=== PATIENT | female | born 1970 | race Caucasian/White ===

== ENCOUNTER 2019-03-17 05:58 | Emergency (ER) | payer BC ==
--- NOTE | 2019-03-17 06:00 | PDOC ---
History of Present Illness - General Chief Complaint: Pain, Acute Stated Complaint: L FLANK PAIN Time Seen by Provider: 03/17/19 05:59 - History of Present Illness Initial Comments: 03/17/19 06:12 The patient is a 48 year old female, with a significant PMH of left sided renal colic 4 and a half years ago, presents to the emergency department with 1 day hx of progressive left flank pain(similar to previous renal colic). The patient states pain was tolerable during the day yesterday and she was able to go to sleep in the evening after taking a Tylenol with Codeine tablet that she had. She awakened at 2:30A with severe L flank pain , accompanied by nausea and one episode of vomiting. No relief after 800mg of Ibuprofen and pt proceeded here.NO fever/chills/ dysuria/ gross hematuria CT in 2013 showed mild to moderate L hydronephrosis/hydroureter with 2-3mm stone in left paramedian bladder, suggestive of recent passage No other significant PMH The patient denies chest pain, shortness of breath, headache and dizziness. Denies fever, chills, nausea, vomit, diarrhea and constipation. On no regular medications No smoking/alcohol or other drugs Past History - Past Medical History Allergies/Adverse Reactions: Allergies Allergy/AdvReac Type Severity Reaction Status Date / Time No Known Allergies Allergy Verified 08/26/14 10:15 Home Medications: Ambulatory Orders Ibuprofen 400 mg PO QID #30 tablet 03/17/19 Oxycodone HCl/Acetaminophen [Percocet 5-325 mg Tablet -] 1 combo PO Q6H PRN #14 tablet MDD 4 03/17/19 Tamsulosin HCl [Flomax] 0.4 mg PO DAILY #7 capsule 03/17/19 - Reproductive History Para: 2 - Suicide/Smoking/Psychosocial Hx Smoking History: Never smoked Hx Alcohol Use: No Substance Use Type: None Review of Systems - Review of Systems Able to Perform ROS?: Yes Comments:: GENERAL/CONSTITUTIONAL: No fever or chills. No weakness. HEAD, EYES, EARS, NOSE AND THROAT: No change in vision. No ear pain or discharge. No sore throat. CARDIOVASCULAR: No chest pain or shortness of breath. RESPIRATORY: No cough, wheezing, or hemoptysis. GASTROINTESTINAL: No nausea, vomiting, diarrhea or constipation. MUSCULOSKELETAL: No joint or muscle swelling or pain. No neck or back pain. SKIN: No rash NEUROLOGIC: No headache, vertigo, loss of consciousness, or change in strength/ sensation. ENDOCRINE: No increased thirst. No abnormal weight change. HEMATOLOGIC/LYMPHATIC: No anemia, easy bleeding, or history of blood clots. ALLERGIC/IMMUNOLOGIC: No hives or skin allergy. *Physical Exam - Physical Exam Comments: GENERAL: Awake, alert, and fully oriented, in moderate distress secondary to left flank pain HEAD: No signs of trauma EYES: PERRLA, EOMI, sclera anicteric, conjunctiva clear ENT: Auricles normal inspection, hearing grossly normal, nares patent, oropharynx clear without exudates. Dry mucosa NECK: Normal ROM, supple, no lymphadenopathy, JVD, or masses LUNGS: Breath sounds equal, clear to auscultation bilaterally. No wheezes, and no crackles HEART: Regular rate and rhythm, normal S1 and S2, no murmurs, rubs or gallops ABDOMEN: Soft, normoactive bowel sounds. No guarding, no rebound. No masses Mild Left flank/CVA tenderness EXTREMITIES: Normal range of motion, no edema. No clubbing or cyanosis. No cords, erythema, or tenderness NEUROLOGICAL: Cranial nerves II through XII grossly intact. Normal speech, normal gait SKIN: Warm, Dry, normal turgor, no rashes or lesions noted. ED Treatment Course - LABORATORY CBC & Chemistry Diagram: 03/17/19 06:17 03/17/19 06:17 Medical Decision Making - Medical Decision Making 03/17/19 06:20 This 48 y.o old with hx of renal colic 4 years ago presents with one day hx of left flank pain similar to previous colic episode. Was awakened by more severe flank pain with nausea/ vomiting about 3 hours prior to presentation. Exam as noted IV started with 1 liter NS and 30mg Toradol . CBC/Chemistry/UA/PGU to be sent. 03/17/19 06:46 1 mg Dilaudid IV given after patient had limited relief of pain. Pt reports significant pain relief after Dilaudid. Plan renal stone protocol CT *DC/Admit/Observation/Transfer Diagnosis at time of Disposition: Kidney stone on left side, Pericardial effusion - Discharge Dispostion Disposition: HOME Condition at time of disposition: Stable - Prescriptions Prescriptions: Ibuprofen 400 mg PO QID #30 tablet Oxycodone HCl/Acetaminophen [Percocet 5-325 mg Tablet -] 1 combo PO Q6H PRN #14 tablet MDD 4 PRN Reason: Pain Tamsulosin HCl [Flomax] 0.4 mg PO DAILY #7 capsule - Referrals Referrals: Kvng Sotelo MD [Staff Physician] - Tim Herzog MD [Staff Physician] - Samm Hoffman MD [Staff Physician] - - Patient Instructions Printed Discharge Instructions: DI for Kidney Stones, DI for Prescription Opioid Use Additional Instructions: Return to the emergency department immediately with ANY new, persistent or worsening symptoms including worsening pain, inability to tolerate oral intake, fever/chills, or any other concerns. Take the ibuprofen every 6 hours for the next 2 days. Take percocet if you have pain that is not treated with the motrin/ibuprofen. Beware that it may make you sleepy, so do not drive or do anything that would put you or others in danger. Take flomax daily. Stay well hydrated. There was also an incidental finding of a trace pericardial effusion on your CAT scan - please follow-up with your primary care doctor and or a biomedical specialist to have this monitored. If he has any shortness of breath, chest pain or other concerns return to the emergency department immediately. A copy of the CAT scan with the results was included for your review - please share this with your doctor. You MUST call and follow up with your doctor and urology within 3 days for further evaluation of your symptoms. Your emergency department visit is not complete without a followup with your doctor for reevaluation. Results were discussed with you. Please make sure your doctor reviews the results of your emergency evaluation. Print Language: CITIZEN OF [place] - Post Discharge Activity Forms/Work/School Notes: Back to Work
[2019-03-17] MEDS ORDERED: KETOROLAC TROMETHAMINE 60 MG/2 ML VIAL IM ONE (06:01)
[2019-03-17] MEDS ORDERED: SODIUM CHLORIDE 1,000 ML IV STA (06:01)
[2019-03-17 06:04] VITALS: TEMP 97.5; BMI 29.7
[2019-03-17] MEDS ORDERED: KETOROLAC TROMETHAMINE 30 MG/1 ML VIAL IVPUSH ONE (06:05)
[2019-03-17] MEDS ORDERED: KETOROLAC TROMETHAMINE 30 MG/1 ML VIAL ONE (06:05)
[2019-03-17] MEDS ORDERED: HYDROmorphone HCL CARPU-JECT 1 MG/1 ML DISP.SYRIN IVPUSH ONE (06:20)
[2019-03-17] MEDS ORDERED: HYDROmorphone HCL CARPU-JECT 1 MG/1 ML DISP.SYRIN ONE (06:24)
[2019-03-17 07:02] LABS: HCG,QUALITATIVE URINE Negative
[2019-03-17 07:16] LABS: BASO % 0.1 % (0-2.0); HEMATOCRIT 42.7 % (32.4-45.2); HEMOGLOBIN 14.1 GM/dl (10.7-15.3); LYMPH % 19.4 % (8-40); MCH 30.9 pg (25.7-33.7); MEAN CELL VOLUME 93.4 fl (80-96); MEAN PLT VOLUME 9.1 fl (7.5-11.1); NEUT % 73.5 % (42.8-82.8); PLATELET COUNT 335 K/MM3 (134-434); RBC 4.57 M/mm3 (3.60-5.2); RDW 12.2 % (11.6-15.6); WHITE BLOOD COUNT 11.9 K/mm3 (4.0-10.8)
[2019-03-17 07:23] LABS: ALBUMIN 4.2 g/dl (3.4-5.0); ALK PHOS 79 U/L (45-117); ANION GAP 13 MMOL/L (8-16); BLOOD UREA NITROGEN 19 mg/dl (7-18); CALCIUM 10.2 mg/dl (8.5-10); CHLORIDE 99 mmol/L (98-107); CO2 26 mmol/L (21-32); CREATININE 0.7 mg/dl (0.55-1.3); GLUCOSE,RANDOM 101 mg/dl (74-106); SGOT/AST 20 U/L (15-37); SGPT/ALT 20 U/L (13-61); SODIUM 138 mmol/L (136-145); TOT PROT 7.3 g/dl (6.4-8.2)
[2019-03-17 08:26] LABS: EPITHELIAL CELLS 2+ /hpf
--- NOTE | 2019-03-17 09:12 | PDOC ---
*Physical Exam - Vital Signs Last Vital Signs Temp Pulse Resp BP Pulse Ox 97.5 F L 56 L 15 159/76 100 03/17/19 06:00 03/17/19 06:00 03/17/19 06:00 03/17/19 06:00 03/17/19 06:00 ED Treatment Course - LABORATORY CBC & Chemistry Diagram: 03/17/19 06:17 03/17/19 06:17 - ADDITIONAL ORDERS Additional order review: Laboratory Results 03/17/19 03/17/19 06:17 06:17 Sodium 138 Potassium 4.0 Chloride 99 Carbon Dioxide 26 Anion Gap 13 BUN 19 H Creatinine 0.7 Creat Clearance w eGFR 89.31 Random Glucose 101 Calcium 10.2 H Total Bilirubin 1.0 AST 20 ALT 20 Alkaline Phosphatase 79 Total Protein 7.3 Albumin 4.2 Urine Color Yellow Urine Appearance Clear Urine pH 7.5 Urine Protein Negative Urine Glucose (UA) Negative Urine Ketones Negative Urine Blood Trace-intact Urine Nitrite Negative Urine Bilirubin Negative Urine Urobilinogen 0.2 Ur Leukocyte Esterase Negative Urine RBC 0-3 Urine WBC 0-3 Ur Transition Epith Cell 2+ Urine Bacteria Few Urine HCG, Qual Negative 03/17/19 06:17 RBC 4.57 MCV 93.4 MCHC 33.0 RDW 12.2 MPV 9.1 Neutrophils % 73.5 Lymphocytes % 19.4 Monocytes % 6.0 Eosinophils % 1.0 Basophils % 0.1 - Medications Given in the ED: ED Medications Discontinued Medications Generic Name Dose Route Start Last Admin Trade Name Freq PRN Reason Stop Dose Admin Hydromorphone HCl 1 mg 03/17/19 06:20 03/17/19 06:23 Dilaudid Injection - IVPUSH 03/17/19 06:21 1 mg ONCE ONE Administration Sodium Chloride 1,000 mls @ 1,000 mls/hr 03/17/19 06:01 03/17/19 06:16 Normal Saline - IV 03/17/19 07:00 1,000 mls/hr ASDIR STA Administration Ketorolac Tromethamine 60 mg 03/17/19 06:01 03/17/19 06:16 Toradol Injection - IM 03/17/19 06:02 60 mg ONCE ONE Administration Ketorolac Tromethamine 30 mg 03/17/19 06:05 03/17/19 06:17 Toradol Injection - IVPUSH 03/17/19 06:06 30 mg ONCE ONE Administration Medical Decision Making - Medical Decision Making 03/17/19 09:07 Pt feeling better on reassessment. Currently pain free, non since rceiving medications. Pts labs reviewed no signs of UTI on ua CT results reviewed - noted for moderate L hydro with obstructing stone in UVJ measuring 4.7 x 3.7mm. . there is also trace pericardial effusion and minimal b /l pleural efusion noted - unclear of significance - pt has no symptoms of sob/ cp/whitt. will have pt fu with urology and cardiology for further follow up and potential workup. return precautinos were dsicussed (for both stone & sob/whitt/complicatinos sof pericardial effusion) I discussed the physical exam findings, ancillary test results and final diagnoses with the patient. I answered all of the patient's questions. The patient was satisfied with the care received and felt comfortable with the discharge plan and treatment plan. The patient will call their primary care physician within 24 hours to arrange follow-up and will return to the Emergency Department with any new, persistent or worsening symptoms. *DC/Admit/Observation/Transfer Diagnosis at time of Disposition: Kidney stone on left side, Pericardial effusion - Discharge Dispostion Disposition: HOME Condition at time of disposition: Stable Decision to Admit order: No - Prescriptions Prescriptions: Ibuprofen 400 mg PO QID #30 tablet Oxycodone HCl/Acetaminophen [Percocet 5-325 mg Tablet -] 1 combo PO Q6H PRN #14 tablet MDD 4 PRN Reason: Pain Tamsulosin HCl [Flomax] 0.4 mg PO DAILY #7 capsule - Referrals Referrals: Samm Hoffman MD [Staff Physician] - Tim Herzog MD [Staff Physician] - Kvng Sotelo MD [Staff Physician] - - Patient Instructions Printed Discharge Instructions: DI for Kidney Stones, DI for Prescription Opioid Use Additional Instructions: Return to the emergency department immediately with ANY new, persistent or worsening symptoms including worsening pain, inability to tolerate oral intake, fever/chills, or any other concerns. Take the ibuprofen every 6 hours for the next 2 days. Take percocet if you have pain that is not treated with the motrin/ibuprofen. Beware that it may make you sleepy, so do not drive or do anything that would put you or others in danger. Take flomax daily. Stay well hydrated. There was also an incidental finding of a trace pericardial effusion on your CAT scan - please follow-up with your primary care doctor and or a clinic md associate to have this monitored. If he has any shortness of breath, chest pain or other concerns return to the emergency department immediately. A copy of the CAT scan with the results was included for your review - please share this with your doctor. You MUST call and follow up with your doctor and urology within 3 days for further evaluation of your symptoms. Your emergency department visit is not complete without a followup with your doctor for reevaluation. Results were discussed with you. Please make sure your doctor reviews the results of your emergency evaluation. Print Language: [place] - Post Discharge Activity Forms/Work/School Notes: Back to Work
[2019-03-17 09:14] VITALS: BP 135/75; PULSE 64
[2019-03-17] MEDS ORDERED: morphine CARPU-JECT 2 MG/1 ML DISP.SYRIN IVPUSH ONE (09:35)
[2019-03-17] MEDS ORDERED: morphine SULFATE 4 MG/ML VIAL ONE (09:37)
== END 2019-03-17 10:08 | disposition home or self-care (01) ==
LOC: FER 05:58
PROC: 3E0233Z Introduction of Anti-inflammatory into Muscle, Percutaneous Approach (ICD-10-PCS; principal; 2019-03-17)
PROC: 3E033NZ Introduction of Analgesics, Hypnotics, Sedatives into Peripheral Vein, Percutaneous Approach (ICD-10-PCS; 2019-03-17)
PROC: 3E0337Z Introduction of Electrolytic and Water Balance Substance into Peripheral Vein, Percutaneous Approach (ICD-10-PCS; 2019-03-17)
DX: N20.0 Calculus of kidney (principal); I31.3 Pericardial effusion (noninflammatory)
CPT/HCPCS: 36415; 74176-TC; 80053; 81003; 81015; 84703; 85025; 99283-25; J7030

== ENCOUNTER 2019-09-27 22:05 | Emergency (ER) | payer BC ==
[2019-09-27] MEDS ORDERED: SODIUM CHLORIDE 1,000 ML IV ONE (22:12)
[2019-09-27] MEDS ORDERED: KETOROLAC TROMETHAMINE 30 MG/1 ML VIAL IVPUSH ONE (22:12)
--- NOTE | 2019-09-27 22:14 | PDOC ---
History of Present Illness - General Chief Complaint: Pain, Acute Stated Complaint: LEFT FLANK PAIN Time Seen by Provider: 09/27/19 22:08 History Source: Patient Exam Limitations: No Limitations - History of Present Illness Initial Comments: 09/27/19 22:23 This is a 48-year-old female who has history of renal colic multiple times in the past. Patient said she has had left-sided flank pain all day radiating towards her left lower quadrant. Patient also was complaining of some pain when she tries to urinate. Patient otherwise denies any fever, chills, nausea, vomiting or diarrhea. Allergies: as per nursing notes Past Medical History: none Social history: Lives with family. No smoking. No alcohol. No illicit drugs. Surgical history: None General: No fevers or chills, no weakness, no weight loss HEENT: No change in vision. No sore throat,. No ear pain CardioVascular: no chest discomfort. No shortness of breath Respiratory:No cough, or wheezing. Gastrointestinal: no nausea, vomiting, diarrhea or constipation, No rectal bleeding Genitourinary: + dysuria, no hematuria, or frequency, left flank pain Musculoskeletal: No joint or muscle pain or swelling Neurologic: No headache, vertigo, dizziness or loss of consciousness Psychiatric: nor depression Skin: No rashes or easy bruising Endocrine: no increased thirst or abnormal weight change Allergic: no skin or latex allergy All other systems reviewed and normal GENERAL: The patient is awake, alert, and fully oriented, in no acute distress. HEAD: Normal with no signs of trauma. EYES: Pupils equal, round and reactive to light, extraocular movements intact, sclera anicteric, conjunctiva clear. Left flank: There is tenderness on palpation left lower flank, there is no CVA tenderness EXTREMITIES:atraumatic, Normal range of motion, no edema. NEUROLOGICAL: Normal speech, normal gait. PSYCH: Normal mood, normal affect. SKIN: Warm, Dry, normal turgor, no rashes or lesions noted. Assessment and plan: Work-up initiated including CBC, comp, spiral CT, UA Patient given IV fluids and Toradol for pain. 09/28/19 01:24 Reevaluation: Patient feels much better. CAT scan is back shows a 5 mm stone in the bladder patient has passed the stone. Patient discharged with follow-up with her urologist Past History - Past Medical History Allergies/Adverse Reactions: Allergies Allergy/AdvReac Type Severity Reaction Status Date / Time No Known Allergies Allergy Verified 09/27/19 22:11 Home Medications: Ambulatory Orders NK [No Known Home Medication] 09/27/19 COPD: No - Reproductive History Para: 2 - Psycho Social/Smoking Cessation Hx Smoking History: Never smoked Have you smoked in the past 12 months: No Number of Cigarettes Smoked Daily: 0 Hx Alcohol Use: No Drug/Substance Use Hx: No Substance Use Type: None ED Treatment Course - LABORATORY CBC & Chemistry Diagram: 09/27/19 22:20 09/27/19 22:20 Discharge - Discharge Information Problems reviewed: Yes Clinical Impression/Diagnosis: Renal colic on left side Condition: Stable Disposition: HOME - Admission No - Follow up/Referral - Patient Discharge Instructions Additional Instructions: Return to the emergency department immediately with ANY new, persistent or worsening symptoms. Continue any medications as previously prescribed by your physician. You should follow up with your primary doctor as soon as possible regarding today's emergency department visit. . Please make sure your doctor reviews the results of your emergency evaluation. Thank you for coming to the Emergency Department today for your care. It was a pleasure to see you today. Please note that your evaluation is INCOMPLETE until you follow-up with your doctor. - Post Discharge Activity Work/Back to School Note: Back to Work
[2019-09-27 22:20] VITALS: BP 155/96; PULSE 65; TEMP 98.1; BMI 31.3
[2019-09-27 22:33] LABS: BASO % 0.3 % (0-2.0); EOS % 0.6 % (0-4.5); HEMATOCRIT 43.6 % (32.4-45.2); HEMOGLOBIN 14.3 GM/dl (10.7-15.3); LYMPH % 19.5 % (8-40); MCH 30.2 pg (25.7-33.7); MCHC 32.7 g/dl (32.0-36.0); MEAN CELL VOLUME 92.2 fl (80-96); MEAN PLT VOLUME 8.6 fl (7.5-11.1); MONO % 6.9 % (3.8-10.2); NEUT % 72.7 % (42.8-82.8); PLATELET COUNT 335 K/MM3 (134-434); RBC 4.72 M/mm3 (3.60-5.2); RDW 12.2 % (11.6-15.6); WHITE BLOOD COUNT 14.5 K/mm3 (4.0-10.8)
[2019-09-27 22:43] LABS: ALBUMIN 4.2 g/dl (3.4-5.0); BILIRUBIN,TOTAL 0.7 mg/dl (0.2-1); CALCIUM 9.7 mg/dl (8.5-10); CREATININE 0.8 mg/dl (0.55-1.3); POTASSIUM 3.7 mmol/L (3.5-5.1); TOT PROT 7.7 g/dl (6.4-8.2)
[2019-09-27 22:45] LABS: AMORP PHOS 3+ /hpf (NONE SEEN); CALCIUM OXALATE CRYSTALS MODERATE /hpf (NONE SEEN)
== END 2019-09-28 01:29 | disposition home or self-care (01) ==
LOC: FER 22:05
PROC: 3E0333Z Introduction of Anti-inflammatory into Peripheral Vein, Percutaneous Approach (ICD-10-PCS; principal; 2019-09-27)
DX: N20.0 Calculus of kidney (principal)
CPT/HCPCS: 36415; 74176-TC; 80053; 81003; 81015; 84703; 85025; 99282-25; J7030

== ENCOUNTER 2023-01-31 22:46 | Emergency (ER) | payer BC, OTHER ==
[2023-01-31] MEDS ORDERED: KETOROLAC TROMETHAMINE 30 MG/1 ML VIAL IVPUSH ONE (22:55)
[2023-01-31] MEDS ORDERED: SODIUM CHLORIDE 0.9% 500 ML INFUS.BAG IV ONE (22:55)
[2023-01-31] MEDS ORDERED: KETOROLAC TROMETHAMINE 30 MG/1 ML VIAL ONE (22:58)
[2023-01-31 23:06] VITALS: BP 172/84; PULSE 72; RESP 18; TEMP 98.2; BMI 31.4
[2023-01-31 23:20] LABS: HEMATOCRIT 46.6 % (32.4-45.2); HEMOGLOBIN 15.6 G/dL (10.7-15.3); MCH 30.7 pg (25.7-33.7); MCHC 33.5 g/dl (32.0-36.0); MEAN CELL VOLUME 91.8 fl (80-96); MEAN PLT VOLUME 7.9 fl (7.5-11.1); PLATELET COUNT 355.2 10^3/uL (134-434); RBC 5.08 10^6/uL (3.60-5.2); RDW 13.5 % (11.6-15.6); WHITE BLOOD COUNT 11.2 10^3/uL (4.0-10.8)
[2023-01-31 23:29] LABS: ALBUMIN 4.3 g/dl (3.4-5.0); BILIRUBIN,TOTAL 0.3 mg/dl (0.2-1); CREATININE 0.7 mg/dl (0.55-1.3); TOT PROT 7.9 g/dl (6.4-8.2)
[2023-01-31] MEDS ORDERED: MAGNESIUM SULF 50% (8.12 MEQ/2 ML-1 GM VIAL) IVPB ONE (23:41)
[2023-01-31] MEDS ORDERED: POTASSIUM CHLORIDE TABS 20 MEQ TABLET.ER (FP) PO ONE ×2 (23:41→23:46)
[2023-01-31] MEDS ORDERED: MAGNESIUM SULFATE IN WATER 2 GM/50 ML IVPB IVPB ONE (23:46)
[2023-01-31 23:49] LABS: CALCIUM OXALATE CRYSTALS FEW /hpf (NONE SEEN); EPITHELIAL CELLS FEW /hpf; URINE AMORPHOUS SEDIMENT 2+
[2023-01-31] MEDS ORDERED: morphine CARPU-JECT 2 MG/1 ML DISP.SYRIN IVPUSH ONE (23:50)
[2023-01-31] MEDS ORDERED: morphine SULFATE 4 MG/ML VIAL ONE (23:52)
== END 2023-02-01 00:19 | disposition home or self-care (01) ==
LOC: FER 22:46
PROC: 3E0333Z Introduction of Anti-inflammatory into Peripheral Vein, Percutaneous Approach (ICD-10-PCS; principal; 2023-01-31)
PROC: 3E033GC Introduction of Other Therapeutic Substance into Peripheral Vein, Percutaneous Approach (ICD-10-PCS; 2023-01-31)
PROC: 3E033GC Introduction of Other Therapeutic Substance into Peripheral Vein, Percutaneous Approach (ICD-10-PCS; 2023-01-31)
DX: N20.0 Calculus of kidney (principal); N20.1 Calculus of ureter
CPT/HCPCS: 36415; 74176-TC; 80053; 81003; 81015; 85025; 99284-25

== ENCOUNTER 2023-04-19 09:06 | Day surgery (SDC) | payer OTHER ==
[2023-04-19] MEDS ORDERED: ACETAMINOPHEN 1000 MG/100 ML BAG IVPB ONE (09:23)
[2023-04-19] MEDS ORDERED: KETOROLAC TROMETHAMINE 30 MG/1 ML VIAL IVPUSH ONE (09:23)
[2023-04-19] MEDS ORDERED: SODIUM CHLORIDE 0.9% 500 ML INFUS.BAG IV ONE (09:25)
[2023-04-19] MEDS ORDERED: ACETAMINOPHEN INJECTION 100 ML IVPB ONE (09:32)
[2023-04-19] MEDS ORDERED: KETOROLAC TROMETHAMINE 30 MG/1 ML VIAL ONE (09:32)
[2023-04-19 09:38] LABS: HEMATOCRIT 47.1 % (32.4-45.2); HEMOGLOBIN 15.4 G/dL (10.7-15.3); MCH 30.5 pg (25.7-33.7); MCHC 32.7 g/dl (32.0-36.0); MEAN CELL VOLUME 93.3 fl (80-96); MEAN PLT VOLUME 8.7 fl (7.5-11.1); PLATELET COUNT 315.8 10^3/uL (134-434); RBC 5.05 10^6/uL (3.60-5.2); WHITE BLOOD COUNT 7.3 10^3/uL (4.0-10.8)
[2023-04-19 10:13] LABS: PLATELET ESTIMATE ADEQUATE
[2023-04-19] MEDS ORDERED: HYDROmorphone HCl 2 MG/ML VIAL IVPUSH ONE (10:25)
[2023-04-19 10:32] LABS: EPITHELIAL CELLS FEW /hpf
[2023-04-19 10:48] LABS: POTASSIUM 3.7 mmol/L (3.5-5.1)
[2023-04-19 10:50] LABS: CALCIUM 9.7 mg/dL (8.5-10.1)
[2023-04-19] MEDS ORDERED: HYDROmorphone HCL/PF 1 MG/ML VIAL ONE (10:50)
[2023-04-19 10:51] LABS: ALBUMIN 3.8 g/dl (3.4-5.0); BLOOD UREA NITROGEN 13.1 mg/dL (7-18)
[2023-04-19 10:54] LABS: CREATININE 0.6 mg/dL (0.55-1.3)
[2023-04-19 10:56] LABS: BILIRUBIN,TOTAL 0.6 mg/dL (0.2-1); TOT PROT 7.6 g/dl (6.4-8.2)
[2023-04-19] MEDS ORDERED: TAMSULOSIN HCL 0.4 MG CAP PO ONE (11:55)
[2023-04-19] MEDS ORDERED: TAMSULOSIN HCL 0.4 MG CAP ONE (12:28)
[2023-04-19] MEDS ORDERED: ACETAMINOPHEN 1000 MG/100 ML BAG IVPB PRN (15:42)
[2023-04-19] MEDS ORDERED: SODIUM CHLORIDE 1,000 ML IV SCH (15:45)
[2023-04-19] MEDS ORDERED: morphine SULFATE 4 MG/ML VIAL ONE (17:31)
[2023-04-19] MEDS ORDERED: ONDANSETRON 4 MG/2 ML VIAL IVPUSH ONE (17:36)
[2023-04-19] MEDS ORDERED: ONDANSETRON 4 MG/2 ML VIAL ONE (17:37)
[2023-04-19 20:10] VITALS: BMI 35.1
[2023-04-19] MEDS ORDERED: ACETAMINOPHEN 325 MG TABLET (FP) PO PRN (20:15)
[2023-04-19] MEDS: CEFTRIAXONE 1 GM in DEXTROSE 5%-WATER - 50 ML IVPB SCH (20:46)
[2023-04-19 21:34] LABS: URIC ACID 3.8 mg/dL (2.6-7.2)
[2023-04-19] MEDS ORDERED: ALPRAZolam 0.25 MG TABLET PO SCH (22:00)
[2023-04-20] MEDS ORDERED: TAMSULOSIN HCL 0.4 MG CAP PO SCH (08:30)
[2023-04-20] MEDS ORDERED: NICOTINE 7 MG/24 HOURS TOPICAL PATCH TD SCH (10:00)
[2023-04-20] MEDS: CEFTRIAXONE 1 GM in DEXTROSE 5%-WATER - 50 ML IVPB SCH (10:44)
[2023-04-20 10:52] LABS: INR 1.17 (0.83-1.09); PROTHROMBIN TIME (PATIENT) 13.5 SEC (9.7-13.0)
[2023-04-20 10:57] LABS: HEMOGLOBIN 13.4 GM/dL (10.7-15.3); MCH 29.8 pg (25.7-33.7); MCHC 32.6 g/dl (32.0-36.0); MEAN CELL VOLUME 91.5 fl (80-96); MEAN PLT VOLUME 8.9 fl (7.5-11.1); PLATELET COUNT 324 10^3/uL (134-434); RBC 4.48 M/mm3 (3.60-5.2); RDW 13.5 % (11.6-15.6); WHITE BLOOD COUNT 10.5 K/mm3 (4.0-10.0)
[2023-04-20 11:10] LABS: POTASSIUM 3.5 mmol/L (3.5-5.1)
[2023-04-20 11:26] LABS: ALBUMIN 3.4 g/dl (3.4-5.0); CALCIUM 9.4 mg/dL (8.5-10.1)
[2023-04-20 11:29] LABS: MAGNESIUM 2.1 mg/dL (1.8-2.4); PHOSPHOROUS 2.6 mg/dL (2.5-4.9)
[2023-04-20 11:30] LABS: BILIRUBIN,TOTAL 1.1 mg/dL (0.2-1); TOT PROT 6.5 g/dl (6.4-8.2)
[2023-04-20 11:31] LABS: BLOOD UREA NITROGEN 10.6 mg/dL (7-18)
[2023-04-20 11:34] LABS: CREATININE 0.8 mg/dL (0.55-1.3)
[2023-04-20] MEDS ORDERED: MIDAZOLAM HCL 2 MG/2 ML SINGLE DOSE VIAL ONE (12:09)
[2023-04-20] MEDS ORDERED: PROPOFOL 20 ML ONE (12:09)
[2023-04-20] MEDS ORDERED: DEXAMETHASONE SOD PHOSPHATE 4 MG/1 ML VIAL ONE (12:41)
[2023-04-20] MEDS ORDERED: ONDANSETRON 4 MG/2 ML VIAL ONE (12:41)
[2023-04-20] MEDS ORDERED: KETOROLAC TROMETHAMINE 30 MG/1 ML VIAL ONE (13:08)
[2023-04-20] MEDS ORDERED: ONDANSETRON 4 MG/2 ML VIAL IVPUSH PRN ×2 (13:20→14:06)
[2023-04-20] MEDS ORDERED: LACTATED RINGERS SOLUTION 1,000 ML IV SCH ×2 (13:30→14:06)
[2023-04-20] MEDS ORDERED: ACETAMINOPHEN 325 MG TABLET (FP) PO PRN (14:06)
[2023-04-20 14:10] VITALS: BP 158/75; PULSE 75; RESP 12; TEMP 97.3
[2023-04-20] MEDS ORDERED: ALPRAZolam 0.25 MG TABLET PO SCH (22:00)
[2023-04-21] MEDS ORDERED: NICOTINE 7 MG/24 HOURS TOPICAL PATCH TD SCH (10:00)
== END 2023-04-20 17:55 | disposition home or self-care (01) ==
LOC: FER 09:06 → UNDOADMIN 18:55 → JERBED 18:55 → J5S 19:36 → JERBED 19:36 → JASUSAT 04-20 14:29 → J5S 04-20 14:29 → JASUSAT 04-20 17:55
PROVIDERS: ATTEND Student in an Organized Health Care Education/Training Program
PROC: 0TC18ZZ Extirpation of Matter from Left Kidney, Via Natural or Artificial Opening Endoscopic (ICD-10-PCS; principal; 2023-04-20 17:00)
PROC: 0T778DZ Dilation of Left Ureter with Intraluminal Device, Via Natural or Artificial Opening Endoscopic (ICD-10-PCS; 2023-04-20 17:00)
DX: N13.2 Hydronephrosis with renal and ureteral calculous obstruction (principal); N17.9 Acute kidney failure, unspecified
CPT/HCPCS: 0241U-QW; 36415; 74176-TC; 76000-TC-FY; 80053; 81003; 81015; 82360; 83735; 84100; 84550; 84703; 85027; 85610; 86850; 86900; 86901; 87086; 88300-TC; 94760; 99285-25; C1758; C2617

== ENCOUNTER 2023-06-08 05:16 | Day surgery (SDC) | payer OTHER ==
[2023-06-03 09:16] VITALS: BMI 32.8
[2023-06-08] MEDS ORDERED: MIDAZOLAM HCL 2 MG/2 ML SINGLE DOSE VIAL ONE (09:24)
[2023-06-08 10:26] VITALS: RESP 18
[2023-06-08 10:27] VITALS: BP 133/77; PULSE 60; TEMP 98.2
== END 2023-06-08 11:15 | disposition home or self-care (01) ==
LOC: JASU-SURG 05:16
PROVIDERS: ATTEND Urology
PROC: 0TF4XZZ Fragmentation in Left Kidney Pelvis, External Approach (ICD-10-PCS; principal; 2023-06-08 09:00)
DX: N20.0 Calculus of kidney (principal)

== ENCOUNTER 2023-09-13 02:48 | Emergency (ER) | payer OTHER ==
[2023-09-13 02:53] VITALS: RESP 18; BMI 32.9
[2023-09-13] MEDS ORDERED: SODIUM CHLORIDE 1,000 ML IV STA (03:00)
[2023-09-13] MEDS ORDERED: KETOROLAC TROMETHAMINE 30 MG/1 ML VIAL IVPUSH ONE (03:01)
[2023-09-13] MEDS ORDERED: KETOROLAC TROMETHAMINE 30 MG/1 ML VIAL ONE (03:02)
[2023-09-13 03:31] VITALS: BP 157/79; PULSE 63; TEMP 97.8
[2023-09-13 04:56] LABS: EPI CELLS 2 /uL (0-25.1); HYALINE CASTS 1 /uL (0-3.1); PH,URINE 6.5 (5.0-8.0); URINE APPEARANCE CLOUDY; URINE BACTERIA >9,000 /uL (0-1359); URINE BILIRUBIN NEGATIVE (NEGATIVE); URINE COLOR YELLOW; URINE GLUCOSE (UA) NEGATIVE (NEGATIVE); URINE KETONE NEGATIVE (NEGATIVE); URINE LEUK ESTERASE 2+ (NEGATIVE); URINE NITRITE NEGATIVE (NEGATIVE); URINE PROTEIN TRACE (NEGATIVE); URINE RBC 87 /uL (0-23.9); URINE WBC 260 /uL (0-25.8)
[2023-09-13 05:31] LABS: BASO % 0.7 % (0-2.0); EOS % 1.4 % (0-4.5); HEMATOCRIT 41.9 % (32.4-45.2); HEMOGLOBIN 13.7 GM/dL (10.7-15.3); MCH 29.9 pg (25.7-33.7); MCHC 32.6 g/dl (32.0-36.0); MEAN CELL VOLUME 91.8 fl (80-96); MONO % 7.5 % (3.8-10.2); NEUT % 56.4 % (42.8-82.8); PLATELET COUNT 315 10^3/uL (134-434); RBC 4.57 M/mm3 (3.60-5.2); RDW 13.6 % (11.6-15.6); WHITE BLOOD COUNT 9.1 K/mm3 (4.0-10.0)
[2023-09-13 06:36] LABS: POTASSIUM 3.2 mmol/L (3.5-5.1)
[2023-09-13 06:39] LABS: CALCIUM 9.6 mg/dL (8.5-10.1)
[2023-09-13 06:40] LABS: ALBUMIN 3.5 g/dl (3.4-5.0); BLOOD UREA NITROGEN 22.2 mg/dL (7-18)
[2023-09-13] MEDS ORDERED: CEPHALEXIN MONOHYDRATE 500 MG CAPSULE (UD) PO ONE (06:40)
[2023-09-13 06:43] LABS: CREATININE 0.6 mg/dL (0.55-1.3)
[2023-09-13] MEDS ORDERED: CEPHALEXIN MONOHYDRATE 500 MG CAPSULE (UD) ONE (06:43)
[2023-09-13 06:44] LABS: BILIRUBIN,TOTAL 0.4 mg/dL (0.2-1)
[2023-09-13] MEDS ORDERED: POTASSIUM CHLORIDE TABS 20 MEQ TABLET.ER (FP) PO ONE ×2 (06:48)
== END 2023-09-13 06:57 | disposition home or self-care (01) ==
LOC: FER 02:48
PROC: 3E033NZ Introduction of Analgesics, Hypnotics, Sedatives into Peripheral Vein, Percutaneous Approach (ICD-10-PCS; principal; 2023-09-13)
PROC: 3E0337Z Introduction of Electrolytic and Water Balance Substance into Peripheral Vein, Percutaneous Approach (ICD-10-PCS; 2023-09-13)
DX: N23 Unspecified renal colic (principal); N39.0 Urinary tract infection, site not specified
CPT/HCPCS: 36415; 74176-TC; 80053; 81003; 85025; 87086; 87186; 99284-25

== ENCOUNTER 2023-11-23 04:33 | Day surgery (SDC) | payer OTHER ==
[2023-11-17 14:30] VITALS: BMI 30.8
[2023-11-23 12:29] VITALS: RESP 18
[2023-11-23] MEDS ORDERED: MIDAZOLAM HCL 2 MG/2 ML SINGLE DOSE VIAL ONE (13:54)
[2023-11-23 15:17] VITALS: BP 157/80; PULSE 55; TEMP 97.8
== END 2023-11-23 15:25 | disposition home or self-care (01) ==
LOC: JASU-SURG 04:33
PROVIDERS: ATTEND Urology
PROC: 0TF3XZZ Fragmentation in Right Kidney Pelvis, External Approach (ICD-10-PCS; principal; 2023-11-23 14:00)
DX: N20.0 Calculus of kidney (principal)

== ENCOUNTER 2023-12-02 13:08 | Emergency (ER) | payer OTHER ==
[2023-12-02] MEDS ORDERED: KETOROLAC TROMETHAMINE 15 MG/ML VIAL IVPUSH ONE (13:13)
[2023-12-02] MEDS ORDERED: ONDANSETRON 4 MG/2 ML VIAL IVPUSH ONE (13:16)
[2023-12-02 13:21] VITALS: BP 198/80; PULSE 72; RESP 18; TEMP 98.1; BMI 31.0
[2023-12-02] MEDS ORDERED: ONDANSETRON 4 MG/2 ML VIAL ONE (13:23)
[2023-12-02] MEDS ORDERED: KETOROLAC TROMETHAMINE 15 MG/ML VIAL ONE (13:23)
[2023-12-02 13:40] LABS: HEMATOCRIT 45.6 % (32.4-45.2); HEMOGLOBIN 14.9 G/dL (10.7-15.3); MCH 30.2 pg (25.7-33.7); MCHC 32.6 g/dl (32.0-36.0); MEAN CELL VOLUME 92.5 fl (80-96); MEAN PLT VOLUME 8.1 fl (7.5-11.1); PLATELET COUNT 326.9 10^3/uL (134-434); RBC 4.93 10^6/uL (3.60-5.2); RDW 13.8 % (11.6-15.6); WHITE BLOOD COUNT 10.2 10^3/uL (4.0-10.8)
[2023-12-02 14:04] LABS: ALBUMIN 4.8 g/dl (3.4-5.0); BILIRUBIN,TOTAL 0.8 mg/dl (0.2-1); CALCIUM 10.5 mg/dl (8.5-10.1); CREATININE 0.7 mg/dl (0.6-1.3); POTASSIUM 3.5 mmol/L (3.5-5.1); TOT PROT 7.4 g/dl (6.4-8.2)
[2023-12-02 14:24] LABS: PLATELET ESTIMATE ADEQUATE
[2023-12-02 15:31] LABS: EPITHELIAL CELLS 0-5 /hpf
== END 2023-12-02 16:26 | disposition home or self-care (01) ==
LOC: FER 13:08
PROC: 3E0333Z Introduction of Anti-inflammatory into Peripheral Vein, Percutaneous Approach (ICD-10-PCS; principal; 2023-12-02)
PROC: 3E033GC Introduction of Other Therapeutic Substance into Peripheral Vein, Percutaneous Approach (ICD-10-PCS; 2023-12-02)
DX: R10.9 Unspecified abdominal pain (principal); N20.0 Calculus of kidney; N23 Unspecified renal colic
CPT/HCPCS: 36415; 74176-TC; 80053; 81003; 81015; 85025; 87086; 99284-25

== ENCOUNTER 2024-07-10 22:50 | Observation (INO) | payer OTHER ==
[2024-07-10] MEDS: SODIUM CHLORIDE 0.9% 500 ML INFUS.BAG IV ONE (23:14)
[2024-07-10] MEDS: KETOROLAC TROMETHAMINE 30 MG/1 ML VIAL IVPUSH ONE (23:15)
[2024-07-11 00:22] LABS: BASO % 0.5 % (0-2.0); EOS % 1.3 % (0-4.5); HEMATOCRIT 41.7 % (32.4-45.2); HEMOGLOBIN 13.8 GM/dL (10.7-15.3); LYMPH % 27.5 % (8-40); MCH 29.9 pg (25.7-33.7); MCHC 33.1 g/dl (32.0-36.0); MEAN CELL VOLUME 90.5 fl (80-96); MEAN PLT VOLUME 8.5 fl (7.5-11.1); MONO % 9.6 % (3.8-10.2); NEUT % 61.1 % (42.8-82.8); PLATELET COUNT 399 10^3/uL (134-434); RBC 4.61 M/mm3 (3.60-5.2); RDW 13.9 % (11.6-15.6); WHITE BLOOD COUNT 12.1 K/mm3 (4.0-10.0)
[2024-07-11 00:26] LABS: EPI CELLS 13 /uL (0-25.1); HYALINE CASTS 0 /uL (0-3.1); PH,URINE 6.5 (5.0-8.0); URINE APPEARANCE CLEAR; URINE BACTERIA 42 /uL (0-1359); URINE BILIRUBIN NEGATIVE (NEGATIVE); URINE COLOR YELLOW; URINE GLUCOSE (UA) NEGATIVE (NEGATIVE); URINE KETONE NEGATIVE (NEGATIVE); URINE LEUK ESTERASE TRACE (NEGATIVE); URINE NITRITE NEGATIVE (NEGATIVE); URINE PROTEIN NEGATIVE (NEGATIVE); URINE RBC 20 /uL (0-23.9); URINE UROBILINOGEN 0.2 mg/dL (0.2-1.0); URINE WBC 30 /uL (0-25.8)
[2024-07-11 00:59] LABS: POTASSIUM 3.2 mmol/L (3.5-5.1)
[2024-07-11 01:00] LABS: CALCIUM 10.1 mg/dL (8.5-10.1)
[2024-07-11 01:01] LABS: ALBUMIN 3.8 g/dl (3.4-5.0); BLOOD UREA NITROGEN 21.3 mg/dL (7-18)
[2024-07-11 01:04] LABS: CREATININE 1.1 mg/dL (0.55-1.3)
[2024-07-11 01:05] LABS: BILIRUBIN,TOTAL 0.4 mg/dL (0.2-1); TOT PROT 7.3 g/dl (6.4-8.2)
[2024-07-11] MEDS ORDERED: TAMSULOSIN HCL 0.4 MG CAP ONE (01:08)
[2024-07-11] MEDS ORDERED: cefTRIAXone SODIUM 1 GM VIAL ONE (01:08)
[2024-07-11] MEDS: CEFTRIAXONE 1 GM in DEXTROSE 5%-WATER - 50 ML IVPB ONE (01:14)
[2024-07-11] MEDS: TAMSULOSIN HCL 0.4 MG CAP PO ONE ×2 (01:14→03:58)
[2024-07-11] MEDS ORDERED: POTASSIUM CHLORIDE TABS 20 MEQ TABLET.ER (FP) PO ONE (01:41)
[2024-07-11] MEDS: POTASSIUM CHLORIDE TABS 20 MEQ TABLET.ER (FP) PO ONE (01:43)
[2024-07-11] MEDS ORDERED: ACETAMINOPHEN 325 MG TABLET (FP) PO PRN (02:53)
[2024-07-11 03:52] VITALS: BMI 33.3
[2024-07-11] MEDS: SODIUM CHLORIDE 1,000 ML IV SCH (03:57)
[2024-07-11 07:28] LABS: MAGNESIUM 2.2 mg/dL (1.8-2.4)
[2024-07-11] MEDS ORDERED: KETOROLAC TROMETHAMINE 30 MG/1 ML VIAL IVPUSH PRN (07:49)
[2024-07-11] MEDS ORDERED: ACETAMINOPHEN 1000 MG/100 ML BAG IVPB PRN (08:12)
[2024-07-11] MEDS ORDERED: POTASSIUM CHLORIDE ORAL LIQUID 20 MEQ/15 ML PO SCH (10:00)
[2024-07-11] MEDS ORDERED: ENOXAPARIN NA (PORCINE) 40 MG/0.4 ML DISP.SYRIN SQ SCH (10:00)
[2024-07-11] MEDS ORDERED: oxyCODONE HCL 5 MG TABLET PO PRN (16:39)
[2024-07-11] MEDS ORDERED: ONDANSETRON 4 MG/2 ML VIAL IVPUSH PRN (16:39)
[2024-07-11] MEDS ORDERED: LACTATED RINGERS SOLUTION 1,000 ML IV SCH (16:45)
[2024-07-11] MEDS ORDERED: MIDAZOLAM HCL 2 MG/2 ML SINGLE DOSE VIAL ONE (17:00)
[2024-07-11] MEDS ORDERED: PROPOFOL 20 ML ONE (17:00)
[2024-07-11] MEDS: ceFAZolin SODIUM 1 GM VIAL IVPB ONE (17:45)
[2024-07-11 18:59] VITALS: RESP 18
[2024-07-11 19:53] VITALS: PULSE 72
[2024-07-11 20:08] VITALS: BP 145/75; TEMP 98.1
[2024-07-12] MEDS ORDERED: CEFTRIAXONE 1 GM in DEXTROSE 5%-WATER - 50 ML IVPB SCH (10:00)
[2024-07-12 12:08] LABS: PARATHYROID HORM INTACT 91 pg/mL (15-65)
== END 2024-07-11 21:10 | disposition home or self-care (01) ==
LOC: FER 22:50 → FM/S 07-11 02:53 → INTOOBSV 07-11 03:27 → UNDOADMOB 07-11 03:27 → FM/S 07-11 03:27 → J8W 07-11 12:57
PROVIDERS: ADMIT Internal Medicine; ATTEND Internal Medicine
PROC: 0TC17ZZ Extirpation of Matter from Left Kidney, Via Natural or Artificial Opening (ICD-10-PCS; 2024-07-11)
PROC: 0T7 Urinary System, Dilation (ICD-10-PCS; 2024-07-11)
PROC: 3E03329 Introduction of Other Anti-infective into Peripheral Vein, Percutaneous Approach (ICD-10-PCS; principal; 2024-07-11 15:15)
PROC: 3E0333Z Introduction of Anti-inflammatory into Peripheral Vein, Percutaneous Approach (ICD-10-PCS; 2024-07-11 15:15)
PROC: 3E0337Z Introduction of Electrolytic and Water Balance Substance into Peripheral Vein, Percutaneous Approach (ICD-10-PCS; 2024-07-11 15:15)
DX: N20.1 Calculus of ureter (principal); N13.30 Unspecified hydronephrosis; Z87.442 Personal history of urinary calculi; R10.9 Unspecified abdominal pain
CPT/HCPCS: 36415; 74176-TC; 76000-TC-FY; 80053; 81003; 82310; 82360; 83735; 83970; 85025; 87086; 87186; 88300-TC; 93005; 94760; 96361; 96365; 96375; 99285-25; C2617; G0378